=== PATIENT | male | born 1980 | race Caucasian/White ===

== ENCOUNTER 2016-05-26 20:46 | Emergency (ER) | payer OTHER ==
[~2016-05-26] VITALS: Ht 190.5 cm; Wt 102.1 kg
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
[2016-05-26] MEDS ORDERED: LACTATED RINGERS 1,000 ML IV ONE ×2 (20:57→22:09)
[2016-05-26 21:00] LABS: BASOPHILS % (AUTO) 1 % (0-10); EOSINOPHILS # (AUTO) 0.2 10^3/uL (0.0-0.3); EOSINOPHILS % (AUTO) 3 % (0-10); LYMPHOCYTES # (AUTO) 2.3 X 10^3 (1.0-4.0); LYMPHOCYTES % (AUTO) 30 % (12-44); MEAN CORPUSCULAR HEMOGLOBIN 32 PG (25-34); MEAN CORPUSCULAR HGB CONC 36 G/DL (32-36); MEAN CORPUSCULAR VOLUME 91 FL (80-99); MEAN PLATELET VOLUME 11.5 FL (7.4-10.4); MONOCYTES # (AUTO) 0.6 X 10^3 (0.0-1.0); MONOCYTES % (AUTO) 8 % (0-12); NEUTROPHILS # (AUTO) 4.5 X 10^3 (1.8-7.8); NEUTROPHILS % (AUTO) 59 % (42-75); PLATELET COUNT 247 10^3/uL (130-400); RED BLOOD COUNT 4.83 10^6/uL (4.35-5.85); RED CELL DISTRIBUTION WIDTH 12.4 % (10.0-14.5); WHITE BLOOD COUNT 7.6 10^3/uL (4.3-11.0)
[2016-05-26] MEDS ORDERED: TETANUS,DIPTH,PERTUSS P/F (BOOSTRIX) 0.5 ML VIAL IM ONE (21:00)
[2016-05-26] MEDS ORDERED: ONDANSETRON 4 MG/2 ML (SDV) Z0FRAN IVP ONE (21:00)
[2016-05-26 21:18] LABS: ALANINE AMINOTRANSFERASE 25 U/L (0-55); ALBUMIN 4.2 G/DL (3.2-4.5); ANION GAP 14 MMOL/L (5-14); ASPARTATE AMINO TRANSFERASE 21 U/L (5-34); BILIRUBIN,TOTAL 0.2 MG/DL (0.1-1.0); BLOOD UREA NITROGEN 13 MG/DL (7-18); BUN/CREATININE RATIO 13; CALCIUM 8.3 MG/DL (8.5-10.1); CARBON DIOXIDE 22 MMOL/L (21-32); CHLORIDE 101 MMOL/L (98-107); GFR ESTIMATED > 60; GLUCOSE 165 MG/DL (70-105); POTASSIUM 3.7 MMOL/L (3.6-5.0); SODIUM 137 MMOL/L (135-145); TOTAL PROTEIN 7.5 G/DL (6.4-8.2)
[2016-05-26 21:21] LABS: ALCOHOL 317 MG/DL (<10)
[2016-05-26 21:42] LABS: BILIRUBIN,URINE NEGATIVE (NEGATIVE); KETONES,URINE NEGATIVE (NEGATIVE); LEUKOCYTE ESTERASE ,URINE NEGATIVE (NEGATIVE); NITRITE,URINE NEGATIVE (NEGATIVE); PH,URINE 6.5 (5-9); PROTEIN,URINE NEGATIVE (NEGATIVE); UROBILINOGEN,URINE NORMAL (NORMAL)
--- NOTE | 2016-05-26 21:46 | Diagnostic Imaging Report ---
Indication: Fall, EtOH. Chest pain. Discussion: Single portable upright view of the chest was obtained, no comparison. The heart and lungs are normal. No osseous abnormality benefit. Impression: Negative portable chest. Dictated by: Dictated on workstation # [id number]
[2016-05-26 21:48] LABS: WBC,URINE RARE /HPF
[2016-05-26 21:49] LABS: SQUAMOUS EPITHELIAL CELL,UR RARE /HPF
--- NOTE | 2016-05-26 21:51 | Diagnostic Imaging Report ---
Indication: Fall with pelvic pain, EtOH. Discussion: Single AP view of the pelvis was obtained, no comparison. No acute fracture, dislocation, or other osseous abnormality identified. No significant degenerative disease. Alignment is anatomic. Soft tissues are unremarkable. Impression: Negative pelvis. Dictated by: Dictated on workstation # [id number]
--- NOTE | 2016-05-26 21:53 | Diagnostic Imaging Report ---
PROCEDURE: CT head, face, and cervical spine without contrast. TECHNIQUE: Multiple contiguous axial images were obtained through the head, neck, and facial bones without the use of intravenous contrast. Sagittal and coronal reformations through the cervical spine and facial bones were also performed. Indication: Fall with head and neck pain, EtOH. Comparison: None. Discussion: Head/face: No intracranial hemorrhage, mass, midline shift, or hydrocephalus. The ventricles and sulci are normal size and configuration for age. No acute facial fracture identified. Mild paranasal sinus mucosal thickening, likely chronic. The visualized orbits, mastoid air cells, and calvarium are unremarkable. Cervical spine: No acute fracture, subluxation, or other osseous abnormality identified. No significant degenerative disease. Alignment is anatomic. Soft tissues are unremarkable. Accessory ossicle noted posterior to the C7 spinous process, incidental. Impression: 1. Negative head CT. 2. Negative cervical spine CT. Dictated by: Dictated on workstation # [id number]
[2016-05-26 23:20] VITALS: BP 124/70
== END 2016-05-26 23:30 | disposition home or self-care (01) ==
LOC: EDUNIT# 20:46 → ER 20:47
DX: S00.81XA Abrasion of other part of head, initial encounter (principal); F10.129 Alcohol abuse with intoxication, unspecified; Z23 Encounter for immunization; F17.210 Nicotine dependence, cigarettes, uncomplicated; Y90.8 Blood alcohol level of 240 mg/100 ml or more; W01.0XXA Fall on same level from slipping, tripping and stumbling without subsequent striking against object, initial encounter; Y92.414 Local residential or business street as the place of occurrence of the external cause; Y99.8 Other external cause status
CPT/HCPCS: 36415; 70450; 70486; 71010; 72125; 72170; 80053; 80306; 80320; 81000; 85025; 90471; 90715; 96361; 96374

== ENCOUNTER 2016-07-21 23:03 | Emergency (ER) | payer OTHER ==
[~2016-07-21] VITALS: Ht 180.3 cm; Wt 95.3 kg
[2016-07-21 23:16] LABS: BASOPHILS % (AUTO) 0 % (0-10); EOSINOPHILS # (AUTO) 0.1 10^3/uL (0.0-0.3); EOSINOPHILS % (AUTO) 1 % (0-10); LYMPHOCYTES # (AUTO) 1.7 X 10^3 (1.0-4.0); LYMPHOCYTES % (AUTO) 20 % (12-44); MEAN CORPUSCULAR HEMOGLOBIN 31 PG (25-34); MEAN CORPUSCULAR HGB CONC 35 G/DL (32-36); MEAN CORPUSCULAR VOLUME 90 FL (80-99); MEAN PLATELET VOLUME 11.8 FL (7.4-10.4); MONOCYTES # (AUTO) 0.7 X 10^3 (0.0-1.0); MONOCYTES % (AUTO) 9 % (0-12); NEUTROPHILS # (AUTO) 5.8 X 10^3 (1.8-7.8); NEUTROPHILS % (AUTO) 70 % (42-75); PLATELET COUNT 266 10^3/uL (130-400); RED CELL DISTRIBUTION WIDTH 12.1 % (10.0-14.5); WHITE BLOOD COUNT 8.3 10^3/uL (4.3-11.0)
[2016-07-21 23:35] LABS: ALANINE AMINOTRANSFERASE 18 U/L (0-55); ALBUMIN 3.8 G/DL (3.2-4.5); ALCOHOL 289 MG/DL (<10); ANION GAP 14 MMOL/L (5-14); ASPARTATE AMINO TRANSFERASE 19 U/L (5-34); BILIRUBIN,TOTAL 0.3 MG/DL (0.1-1.0); BLOOD UREA NITROGEN 9 MG/DL (7-18); BUN/CREATININE RATIO 9; CALCIUM 8.2 MG/DL (8.5-10.1); CARBON DIOXIDE 18 MMOL/L (21-32); CHLORIDE 107 MMOL/L (98-107); CREATININE SERUM 1.02 MG/DL (0.60-1.30); GFR ESTIMATED > 60; GLUCOSE 159 MG/DL (70-105); POTASSIUM 3.5 MMOL/L (3.6-5.0); SALICYLATE < 5.0 MG/DL (5.0-20.0); SODIUM 139 MMOL/L (135-145); TOTAL PROTEIN 6.8 G/DL (6.4-8.2)
[2016-07-21 23:36] LABS: ACETAMINOPHEN < 10 UG/ML (10-30)
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
[2016-07-22 00:54] VITALS: BP 132/91
--- NOTE | 2016-07-22 06:20 | Diagnostic Imaging Report ---
PROCEDURE: CT head and CT cervical spine without contrast. TECHNIQUE: Multiple contiguous axial images were obtained through the brain and cervical spine without the use of intravenous contrast. Sagittal and coronal reformations through the cervical spine were then performed. INDICATION: Found unresponsive COMPARISON: May 26, 2016 FINDINGS: No intracranial hemorrhage. No intracranial mass, mass effect, midline shift, herniation, hydrocephalus, or extra-axial fluid collection. Cavum septum pellucidum is again incidentally noted. No definite CT evidence of an acute ischemic infarction. Significant soft tissue swelling is noted within the bilateral frontal and periorbital regions, left greater than right. The globes appear intact. The calvarium is intact. Minimal mucosal thickening within scattered ethmoidal air cells. Alignment of the cervical spine is well maintained. Alignment of the atlantooccipital joint is well maintained. Vertebral body heights are well-maintained. Minimal disc space height loss at C5/C6. No acute fracture or dislocation. No destructive osseous process. No apical pneumothorax. Mild scattered facet joint degenerative changes and uncovertebral joint hypertrophy. Nuchal ligament calcification. IMPRESSION: No acute intracranial abnormality. No acute osseous abnormality within the cervical spine. Significant bifrontal and periorbital soft tissue swelling, left greater than right. Agree with preliminary interpretation. Dictated by: Dictated on workstation # [id number]
== END 2016-07-22 00:55 | disposition home or self-care (01) ==
LOC: EDUNIT# 23:03 → ER 23:04
DX: S00.81XA Abrasion of other part of head, initial encounter (principal); S00.11XA Contusion of right eyelid and periocular area, initial encounter; S00.12XA Contusion of left eyelid and periocular area, initial encounter; F10.129 Alcohol abuse with intoxication, unspecified; F17.210 Nicotine dependence, cigarettes, uncomplicated; Y04.0XXA Assault by unarmed brawl or fight, initial encounter; Y92.414 Local residential or business street as the place of occurrence of the external cause; Y99.8 Other external cause status
CPT/HCPCS: 36415; 70450; 72125; 80053; 80320; 80329; 85025; 99283

== ENCOUNTER 2017-11-09 19:42 | Emergency (ER) | payer OTHER ==
[~2017-11-09] VITALS: Ht 188 cm; Wt 99.8 kg
[2017-11-09] MEDS ORDERED: NS IV 1000 ML 1,000 ML IV SCH (20:45)
--- NOTE | 2017-11-09 20:47 | ED General ---
General Chief Complaint: General Problems/Pain Stated Complaint: BLOOD CLOT;INFECTION;HIGH BS Source of Information: Patient Exam Limitations: No Limitations History of Present Illness Date Seen by Provider: Nov 09, 2017 Time Seen by Provider: 20:43 Initial Comments To ER with complaints of several issues. He noticed some left lower extremity swelling redness and pain yesterday. He has not seen a doctor in many years and believes himself to be otherwise healthy. He saw [facility] [place] today and had an ultrasound done of the left leg. This was positive for DVT. He then had outpatient labs drawn and was found to have a blood sugar of greater than 400. He is not known to be diabetic. He has no history of DVT. No recent travel or immobilization. No recent surgery. He is a nonsmoker. He states that his sister did have a DVT one time and was told that she had a hereditary clotting condition. He denies any shortness of breath or chest pain. Timing/Duration: 2-3 Days Severity: Moderate Associated Systoms: No Chest Pain, No Cough, No Diaphoresis, No Fever/Chills Allergies and Home Medications Allergies Coded Allergies: Penicillins (Verified Allergy, Unknown, 05/26/16) Home Medications Rivaroxaban 15 Mg Tablet, 15 MG PO BID Prescribed by: KEEGAN REARDON on 11/09/17 4840 Patient Home Medication List Home Medication List Reviewed: Yes Review of Systems Review of Systems Constitutional: see HPI; No chills; fever (100.7 at [facility] [place]) EENTM: see HPI Respiratory: see HPI, dyspnea on exertion Cardiovascular: see HPI; No chest pain, No edema, No Hx of Intervention, No palpitations Genitourinary: no symptoms reported Musculoskeletal: no symptoms reported Skin: see HPI Psychiatric/Neurological: No Symptoms Reported Hematologic/Lymphatic: No Symptoms Reported Immunological/Allergic: no symptoms reported Past Njosfpu-Hpfzse-Ucaszd Hx Patient Social History Alcohol Beverage of Choice: Beer Type Used: Cigarettes 2nd Hand Smoke Exposure: Yes Recent Hopitalizations: No Immunizations Up To Date Tetanus Booster (TDap): Less than 5yrs Seasonal Allergies Seasonal Allergies: No Past Medical History Surgeries: No (UNKNOWN) Respiratory: No (UNKNOWN) Cardiac: No (UNKNOWN) Neurological: No (UNKNOWN) Reproductive Disorders: No (UNKNOWN) Genitourinary: No Gastrointestinal: No (UNKNOWN) Musculoskeletal: No (UNKNOWN) Endocrine: No (UNKNOWN) HEENT: No Cancer: No (UNKNOWN) Psychosocial: No (UNKNOWN) Integumentary: No (UNKNOWN) Blood Disorders: No (UNKNOWN) Family Medical History No Pertinent Family Hx Physical Exam Vital Signs Capillary Refill : Height, Weight, BMI Height: 5'11.00" Weight: 210lbs. oz. 95.189009ll; BMI Method:Estimated General Appearance: No Apparent Distress, WD/WN, Other (very pleasant gentleman ) Eyes: Bilateral Eye Normal Inspection, Bilateral Eye PERRL, Bilateral Eye EOMI HEENT: PERRL/EOMI, TMs Normal Neck: Full Range of Motion, Normal Inspection Respiratory: Lungs Clear, Normal Breath Sounds, No Accessory Muscle Use, No Respiratory Distress Cardiovascular: Regular Rate, Rhythm, Normal Peripheral Pulses; No Systolic Murmur Gastrointestinal: Normal Bowel Sounds, Non Tender, Soft Extremity: Normal Capillary Refill, Inflammation, Other (left lower extremity is with 2+ pitting edema and erythema up to the proximal calf.) Neurologic/Psychiatric: Alert, Oriented x3, No Motor/Sensory Deficits Skin: Normal Color, Warm/Dry Focused Exam Lactate Level 11/09/17 20:51: Lactic Acid Level 1.86 Lactic Acid Level Laboratory Tests Test 11/09/17 20:51 Lactic Acid Level 1.86 MMOL/L (0.50-2.00) Progress/Results/Core Measures Suspected Sepsis SIRS Temperature: Pulse: Respiratory Rate: Laboratory Tests 11/09/17 20:51: White Blood Count 7.2 Blood Pressure / Mean: 11/09/17 20:51: Lactic Acid Level 1.86 Laboratory Tests 11/09/17 20:51: Creatinine 1.28, Platelet Count 201, Total Bilirubin 0.4 Results/Orders Lab Results Laboratory Tests Test 11/09/17 20:51 Range/Units White Blood Count 7.2 4.3-11.0 10^3/uL Red Blood Count 4.70 4.35-5.85 10^6/uL Hemoglobin 14.5 13.3-17.7 G/DL Hematocrit 42 40-54 % Mean Corpuscular Volume 89 80-99 FL Mean Corpuscular Hemoglobin 31 25-34 PG Mean Corpuscular Hemoglobin Concent 35 32-36 G/DL Red Cell Distribution Width 12.5 10.0-14.5 % Platelet Count 201 130-400 10^3/uL Mean Platelet Volume 12.0 H 7.4-10.4 FL Neutrophils (%) (Auto) 61 42-75 % Lymphocytes (%) (Auto) 23 12-44 % Monocytes (%) (Auto) 10 0-12 % Eosinophils (%) (Auto) 5 0-10 % Basophils (%) (Auto) 1 0-10 % Neutrophils # (Auto) 4.4 1.8-7.8 X 10^3 Lymphocytes # (Auto) 1.6 1.0-4.0 X 10^3 Monocytes # (Auto) 0.7 0.0-1.0 X 10^3 Eosinophils # (Auto) 0.4 H 0.0-0.3 10^3/uL Basophils # (Auto) 0.1 0.0-0.1 10^3/uL Sodium Level 135 135-145 MMOL/L Potassium Level 4.5 3.6-5.0 MMOL/L Chloride Level 100 98-107 MMOL/L Carbon Dioxide Level 19 L 21-32 MMOL/L Anion Gap 16 H 5-14 MMOL/L Blood Urea Nitrogen 12 7-18 MG/DL Creatinine 1.28 0.60-1.30 MG/DL Estimat Glomerular Filtration Rate > 60 BUN/Creatinine Ratio 9 Glucose Level 332 H 70-105 MG/DL Lactic Acid Level 1.86 0.50-2.00 MMOL/L Calcium Level 9.6 8.5-10.1 MG/DL Corrected Calcium 9.4 8.5-10.1 MG/DL Total Bilirubin 0.4 0.1-1.0 MG/DL Aspartate Amino Transf (AST/SGOT) 15 5-34 U/L Alanine Aminotransferase (ALT/SGPT) 17 0-55 U/L Alkaline Phosphatase 68 40-136 U/L Total Protein 8.1 6.4-8.2 GM/DL Albumin 4.2 3.2-4.5 GM/DL My Orders Orders - KEEGAN REARDON ACCESS CONTROL SPECIALIST Cbc With Automated Diff (11/09/17 20:32) Comprehensive Metabolic Panel (11/09/17 20:32) Ua Culture If Indicated (11/09/17 20:32) Iv Heplock-Insert (Order) (11/09/17 20:32) Ns Iv 1000 Ml (Sodium Chloride 0.9%) (11/09/17 20:45) Blood Culture (11/09/17 20:49) Lactic Acid Analyzer (11/09/17 20:49) Rivaroxaban Tablet (Xarelto Tablet) (11/09/17 22:15) Vital Signs/I&O Capillary Refill : Departure Communication (Admissions) 7107- spoke Dr. Chun. This is a one-time elevation of blood sugar, he can follow-up in the outpatient setting for recheck and to start on insulin. No evidence that he is in DKA. He is not tachypneic. No shortness of breath or chest pain. Labs are otherwise unremarkable. Impression Primary Impression: Diabetes Additional Impression: Left leg DVT Disposition: HOME, SELF-CARE Condition: Stable Departure-Patient Inst. Decision time for Depature: 21:51 Referrals: DEMI SPRAGUE,LOCAL PHYSICIAN (PCP) Primary Care Physician Patient Instructions: DIABETES, Deep Vein Thrombosis (Blood Clots in the Legs) Add. Discharge Instructions: 1. Call one of the physicians listed at [facility] on Sunday. Start the blood thinners tomorrow. Return to ER for any shortness of breath, chest pain, vomiting or other concerns. Drink plenty of fluids. All discharge instructions reviewed with patient and/or family. Voiced understanding. If you are unable to afford the blood thinner medication, return to ER tomorrow as it is very important that you take this medication. You will need 15mg twice a day for 21 days. Then, 10mg daily thereafter for 3-6 months. So, youll need to see someone to get prescribed the 10mg daily tablets. Scripts Rivaroxaban (Xarelto) 15 Mg Tablet 15 MG PO BID, #42 TAB Prov: KEEGAN REARDON APRN 11/09/17 KEEGAN REARDON APRN Nov 09, 2017 20:47
[2017-11-09 21:08] LABS: BASOPHILS # (AUTO) 0.1 10^3/uL (0.0-0.1); BASOPHILS % (AUTO) 1 % (0-10); EOSINOPHILS # (AUTO) 0.4 10^3/uL (0.0-0.3); EOSINOPHILS % (AUTO) 5 % (0-10); HEMATOCRIT 42 % (40-54); HEMOGLOBIN 14.5 G/DL (13.3-17.7); LYMPHOCYTES # (AUTO) 1.6 X 10^3 (1.0-4.0); LYMPHOCYTES % (AUTO) 23 % (12-44); MEAN CORPUSCULAR HEMOGLOBIN 31 PG (25-34); MEAN CORPUSCULAR HGB CONC 35 G/DL (32-36); MEAN CORPUSCULAR VOLUME 89 FL (80-99); MONOCYTES # (AUTO) 0.7 X 10^3 (0.0-1.0); MONOCYTES % (AUTO) 10 % (0-12); NEUTROPHILS # (AUTO) 4.4 X 10^3 (1.8-7.8); NEUTROPHILS % (AUTO) 61 % (42-75); PLATELET COUNT 201 10^3/uL (130-400); RED CELL DISTRIBUTION WIDTH 12.5 % (10.0-14.5); WHITE BLOOD COUNT 7.2 10^3/uL (4.3-11.0)
[2017-11-09 21:25] LABS: ALANINE AMINOTRANSFERASE 17 U/L (0-55); ALBUMIN 4.2 GM/DL (3.2-4.5); ALKALINE PHOSPHATASE 68 U/L (40-136); BILIRUBIN,TOTAL 0.4 MG/DL (0.1-1.0); BUN/CREATININE RATIO 9; CALCIUM 9.6 MG/DL (8.5-10.1); CARBON DIOXIDE 19 MMOL/L (21-32); CHLORIDE 100 MMOL/L (98-107); CREATININE SERUM 1.28 MG/DL (0.60-1.30); GFR ESTIMATED > 60; GLUCOSE 332 MG/DL (70-105); POTASSIUM 4.5 MMOL/L (3.6-5.0); SODIUM 135 MMOL/L (135-145); TOTAL PROTEIN 8.1 GM/DL (6.4-8.2)
[2017-11-09] MEDS ORDERED: RIVA15TA PO (21:55)
[2017-11-09] MEDS ORDERED: RIVAROXABAN 15 MG TABLET (XARELTO) PO ONE (22:15)
[2017-11-10 20:32] VITALS: BP 149/100
== END 2017-11-09 23:04 | disposition home or self-care (01) ==
LOC: EDUNIT# 19:42 → ER 19:43
DX: E11.9 Type 2 diabetes mellitus without complications (principal); I82.402 Acute embolism and thrombosis of unspecified deep veins of left lower extremity; Z88.0 Allergy status to penicillin; Z77.22 Contact with and (suspected) exposure to environmental tobacco smoke (acute) (chronic)
CPT/HCPCS: 36415; 80053; 83605; 85025; 87040; 96360; 96361; 99283; 99284

== ENCOUNTER → 2017-11-09 | Outpatient (CLI) | payer OTHER ==
[~2017-11-09] MED LIST: RIVA15TA PO
[2017-11-09 18:34] LABS: BASOPHILS % (AUTO) 1 % (0-10); EOSINOPHILS # (AUTO) 0.4 10^3/uL (0.0-0.3); EOSINOPHILS % (AUTO) 6 % (0-10); HEMATOCRIT 46 % (40-54); HEMOGLOBIN 16.2 G/DL (13.3-17.7); LYMPHOCYTES # (AUTO) 1.2 X 10^3 (1.0-4.0); LYMPHOCYTES % (AUTO) 17 % (12-44); MEAN CORPUSCULAR HEMOGLOBIN 31 PG (25-34); MEAN CORPUSCULAR HGB CONC 35 G/DL (32-36); MEAN CORPUSCULAR VOLUME 88 FL (80-99); MEAN PLATELET VOLUME 12.1 FL (7.4-10.4); MONOCYTES # (AUTO) 0.5 X 10^3 (0.0-1.0); MONOCYTES % (AUTO) 7 % (0-12); NEUTROPHILS % (AUTO) 70 % (42-75); PLATELET COUNT 211 10^3/uL (130-400); RED BLOOD COUNT 5.22 10^6/uL (4.35-5.85); RED CELL DISTRIBUTION WIDTH 12.5 % (10.0-14.5); WHITE BLOOD COUNT 7.2 10^3/uL (4.3-11.0)
[2017-11-09 18:47] LABS: INR 0.9 (0.8-1.4); PROTHROMBIN TIME PATIENT 12.5 SEC (12.2-14.7)
[2017-11-09 18:53] LABS: ALANINE AMINOTRANSFERASE 18 U/L (0-55); ALBUMIN 4.6 GM/DL (3.2-4.5); ALKALINE PHOSPHATASE 79 U/L (40-136); BILIRUBIN,TOTAL 0.5 MG/DL (0.1-1.0); BUN/CREATININE RATIO 10; CARBON DIOXIDE 21 MMOL/L (21-32); CHLORIDE 99 MMOL/L (98-107); CREATININE SERUM 1.26 MG/DL (0.60-1.30); GFR ESTIMATED > 60; POTASSIUM 4.7 MMOL/L (3.6-5.0); SODIUM 132 MMOL/L (135-145); TOTAL PROTEIN 8.9 GM/DL (6.4-8.2)
[2017-11-09 18:56] LABS: GLUCOSE 444 MG/DL (70-105)
== END ==
LOC: LAB 18:15
PROVIDERS: ATTEND Nurse Practitioner Family
DX: I82.412 Acute embolism and thrombosis of left femoral vein (principal)
CPT/HCPCS: 36415; 80053; 85025; 85610; 85730

== ENCOUNTER → 2017-11-09 | Outpatient (CLI) | payer OTHER ==
--- NOTE | 2017-11-09 17:19 | Diagnostic Imaging Report ---
INDICATION: Left leg redness and swelling. TECHNIQUE: Grayscale with color-flow and Doppler waveform evaluation of the left lower extremity deep venous system. CORRELATION STUDY: None. FINDINGS: There is presence of a thrombus originating within the mid aspect of the femoral vein of the thigh extending more centrally through the proximal femoral vein, common femoral vein, as well as portions of the profunda femoral vein. Soft tissue edema is present. IMPRESSION: 1. Findings positive for deep venous thrombosis of the left lower extremity. Clot predominantly involving the proximal and mid aspect of the thigh. Findings were relayed by the heel burnisher at time of imaging. Dictated by: Dictated on workstation # [id number]
== END ==
LOC: RAD 16:31
PROVIDERS: ATTEND Nurse Practitioner Family
DX: I82.4Y2 Acute embolism and thrombosis of unspecified deep veins of left proximal lower extremity (principal); L03.116 Cellulitis of left lower limb; H66.91 Otitis media, unspecified, right ear; R03.0 Elevated blood-pressure reading, without diagnosis of hypertension

== ENCOUNTER → 2017-11-10 | Outpatient (CLI) | payer OTHER ==
[2017-11-10 13:40] LABS: BASOPHILS # (AUTO) 0.1 10^3/uL (0.0-0.1); BASOPHILS % (AUTO) 1 % (0-10); EOSINOPHILS # (AUTO) 0.4 10^3/uL (0.0-0.3); EOSINOPHILS % (AUTO) 6 % (0-10); HEMATOCRIT 44 % (40-54); HEMOGLOBIN 15.6 G/DL (13.3-17.7); LYMPHOCYTES # (AUTO) 1.6 X 10^3 (1.0-4.0); LYMPHOCYTES % (AUTO) 22 % (12-44); MEAN CORPUSCULAR HEMOGLOBIN 31 PG (25-34); MEAN CORPUSCULAR HGB CONC 36 G/DL (32-36); MEAN CORPUSCULAR VOLUME 87 FL (80-99); MEAN PLATELET VOLUME 12.1 FL (7.4-10.4); MONOCYTES # (AUTO) 0.7 X 10^3 (0.0-1.0); MONOCYTES % (AUTO) 9 % (0-12); NEUTROPHILS # (AUTO) 4.7 X 10^3 (1.8-7.8); NEUTROPHILS % (AUTO) 63 % (42-75); PLATELET COUNT 225 10^3/uL (130-400); RED CELL DISTRIBUTION WIDTH 12.3 % (10.0-14.5); WHITE BLOOD COUNT 7.5 10^3/uL (4.3-11.0)
[2017-11-10 13:55] LABS: ALANINE AMINOTRANSFERASE 19 U/L (0-55); ALBUMIN 4.3 GM/DL (3.2-4.5); ALKALINE PHOSPHATASE 69 U/L (40-136); BILIRUBIN,TOTAL 0.6 MG/DL (0.1-1.0); BUN/CREATININE RATIO 9; CALCIUM 9.8 MG/DL (8.5-10.1); CARBON DIOXIDE 18 MMOL/L (21-32); CHLORIDE 101 MMOL/L (98-107); CREATININE SERUM 1.19 MG/DL (0.60-1.30); GFR ESTIMATED > 60; GLUCOSE 307 MG/DL (70-105); POTASSIUM 4.4 MMOL/L (3.6-5.0); SODIUM 134 MMOL/L (135-145); TOTAL PROTEIN 8.4 GM/DL (6.4-8.2)
== END ==
LOC: LAB 13:12
PROVIDERS: ATTEND Family Medicine
DX: I82.4Y1 Acute embolism and thrombosis of unspecified deep veins of right proximal lower extremity (principal); E11.9 Type 2 diabetes mellitus without complications; Z79.01 Long term (current) use of anticoagulants
CPT/HCPCS: 36415; 80053; 83036; 85025

== ENCOUNTER → 2018-12-30 | Outpatient (CLI) | payer OTHER ==
[~2018-12-30] MED LIST changes: -RIVA15TA PO; +RIVA15TA2 PO
--- NOTE | 2018-12-30 12:19 | Diagnostic Imaging Report ---
PROCEDURE: US left lower extremity venous. TECHNIQUE: Multiple real-time grayscale images were obtained over the left lower extremity in various projections. Additional duplex Doppler and color Doppler images were also obtained. INDICATION: Prior history of DVT. COMPARISON: Correlation is made with prior study from 11/09/2017. FINDINGS: There appears to be partial occlusive DVT in the left common femoral vein. Clot does appear to be somewhat echogenic and likely chronic. The superficial femoral vein is duplicated. One of the femoral veins does appear to show normal compression. The second vein does show some internal echogenic thrombus, likely chronic DVT. The popliteal vein is widely patent. Peroneal veins were not well visualized. The iliac veins were not well visualized. No fluid collections are seen. 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 No definite acute DVT is seen. Dictated by: Dictated on workstation # [id number]
== END ==
LOC: RAD 11:17
PROVIDERS: ATTEND Nurse Practitioner Family
DX: I82.412 Acute embolism and thrombosis of left femoral vein (principal); M15.8 Other polyosteoarthritis; E13.69 Other specified diabetes mellitus with other specified complication

== ENCOUNTER → 2019-01-03 | Outpatient (CLI) | payer BC, OTHER ==
--- NOTE | 2019-01-03 16:28 | Diagnostic Imaging Report ---
EXAMINATION: Left lower extremity arterial Doppler. INDICATION: Decreased pedal pulses. FINDINGS: Spectral and color-flow imaging of the arterial system of the left lower extremity was performed. There are no prior studies available for comparison. There is generally good arterial blood flow to the left lower extremity. Triphasic waveforms are seen at all levels and there is no abrupt alteration of the velocities to suggest a hemodynamically significant stenosis. IMPRESSION: There is good arterial blood flow to the left lower extremity. There is no evidence for a hemodynamically significant stenosis. Dictated by: Dictated on workstation # [id number]
== END ==
LOC: RAD 15:17
PROVIDERS: ATTEND Nurse Practitioner Family
DX: I82.402 Acute embolism and thrombosis of unspecified deep veins of left lower extremity (principal); I82.522 Chronic embolism and thrombosis of left iliac vein; H92.03 Otalgia, bilateral; M15.8 Other polyosteoarthritis; E11.69 Type 2 diabetes mellitus with other specified complication; M25.572 Pain in left ankle and joints of left foot; M25.571 Pain in right ankle and joints of right foot
CPT/HCPCS: 93926

== ENCOUNTER → 2019-01-16 | Outpatient (CLI) | payer BC, OTHER | LOC: CARD 11:41 | PROVIDERS: ATTEND Internal Medicine Cardiovascular Disease | DX: I34.0 Nonrheumatic mitral (valve) insufficiency (principal); E11.9 Type 2 diabetes mellitus without complications; I82.409 Acute embolism and thrombosis of unspecified deep veins of unspecified lower extremity | CPT/HCPCS: 93306 ==

== ENCOUNTER 2019-01-21 16:44 | Observation (INO) | payer OTHER ==
[~2019-01-21] VITALS: Ht 185.5 cm; Wt 106.8 kg
[2019-01-21] MEDS ORDERED: NS IV 1000 ML 1,000 ML IV ONE (17:32)
[2019-01-21 17:38] LABS: BASOPHILS % (AUTO) 0 % (0-10); EOSINOPHILS # (AUTO) 0.2 10^3/uL (0.0-0.3); EOSINOPHILS % (AUTO) 2 % (0-10); HEMATOCRIT 38 % (40-54); HEMOGLOBIN 12.6 G/DL (13.3-17.7); LYMPHOCYTES # (AUTO) 1.2 X 10^3 (1.0-4.0); LYMPHOCYTES % (AUTO) 10 % (12-44); MEAN CORPUSCULAR HEMOGLOBIN 29 PG (25-34); MEAN CORPUSCULAR HGB CONC 33 G/DL (32-36); MEAN CORPUSCULAR VOLUME 88 FL (80-99); MEAN PLATELET VOLUME 10.8 FL (7.4-10.4); MONOCYTES # (AUTO) 1.2 X 10^3 (0.0-1.0); MONOCYTES % (AUTO) 10 % (0-12); NEUTROPHILS # (AUTO) 9.4 X 10^3 (1.8-7.8); NEUTROPHILS % (AUTO) 78 % (42-75); PLATELET COUNT 451 10^3/uL (130-400); RED CELL DISTRIBUTION WIDTH 12.9 % (10.0-14.5); WHITE BLOOD COUNT 12.1 10^3/uL (4.3-11.0)
--- NOTE | 2019-01-21 17:44 | ED General ---
General Chief Complaint: Dizziness/Syncope Stated Complaint: DIZZINESS/JOINT PAIN Nursing Triage Note: out of the shower and got dizzy "almost passed out" Nursing Sepsis Screen: No Definite Risk Source of Information: Patient Exam Limitations: No Limitations (MARILEE CELESTE MD) History of Present Illness Date Seen by Provider: Jan 21, 2019 Time Seen by Provider: 17:21 Initial Comments Here with report of weakness and felt like he was given a pass out. Overall just had increasing muscle aches and weakness over the last several days. Does have history of blood clots in the left leg and currently is on Xarelto. He is previously on the 20 mg daily dosing but was recently increased to the 15 mg twice a day three-week pack due to concerns of blood clots. He is diabetic. Denies nausea, vomiting or diarrhea. Timing/Duration: 1 Week, Getting Worse Severity: Moderate Modifying Factors: worse with Movement; improves with Rest Associated Systoms: No Chest Pain, No Cough, No Fever/Chills, No Nausea/Vomiting; Shortness of Air, Weakness (MARILEE CELESTE MD) Allergies and Home Medications Allergies Coded Allergies: Penicillins (Verified Allergy, Unknown, 05/26/16) Home Medications Rivaroxaban 15 Mg Tablet, 15 MG PO BID Prescribed by: KEEGAN REARDON on 11/09/17 0659 Patient Home Medication List Home Medication List Reviewed: Yes (MARILEE CELESTE MD) Review of Systems Review of Systems Constitutional: see HPI; No chills, No fever EENTM: no symptoms reported Respiratory: No cough; dyspnea on exertion, short of breath; No wheezing Cardiovascular: No palpitations, No syncope Gastrointestinal: no symptoms reported Genitourinary: no symptoms reported Musculoskeletal: joint pain, muscle pain Skin: change in color; No lesions Psychiatric/Neurological: Denies Headache, Denies Numbness, Denies Paresthesia; Weakness Hematologic/Lymphatic: Blood Clots Immunological/Allergic: no symptoms reported (MARILEE CELESTE MD) All Other Systems Reviewed Negative Unless Noted: Yes (MARILEE CELESTE MD) Past Iokodat-Rjnyag-Huvtxj Hx Past Med/Social Hx: Reviewed Nursing Past Med/Soc Hx (MARILEE CELESTE MD) Patient Social History Alcohol Use: Occasionally Uses Alcohol Beverage of Choice: Beer Recreational Drug Use: No Smoking Status: Former Smoker Type Used: Cigarettes 2nd Hand Smoke Exposure: Yes Recent Foreign Travel: No Contact w/Someone Who Travel: No Recent Infectious Disease Expo: No Recent Hopitalizations: No (MARILEE CELESTE MD) Immunizations Up To Date Tetanus Booster (TDap): Less than 5yrs (MARILEE CELESTE MD) Seasonal Allergies Seasonal Allergies: No (MARILEE CELESTE MD) Past Medical History Surgeries: Yes (hand surgery) Tonsillectomy Respiratory: No Cardiac: Yes High Cholesterol, Hypertension Neurological: Yes Neuropathy Reproductive Disorders: No (UNKNOWN) Genitourinary: No Gastrointestinal: No Musculoskeletal: Yes Endocrine: Yes Diabetes, Non-Insulin dep HEENT: No Cancer: No Psychosocial: No Integumentary: Yes (skin grafting to the hand) Blood Disorders: No (UNKNOWN) (MARILEE CELESTE MD) Family Medical History Reviewed and Corrections made (MARILEE CELESTE MD) No Pertinent Family Hx (MARILEE CELESTE MD) Physical Exam Vital Signs Vital Signs - First Documented 01/21/19 16:51 Temp 36.4 Pulse 113 Resp 18 B/P (MAP) 133/113 (120) Pulse Ox 96 (KEEGAN REARDON APRN) Vital Signs Capillary Refill : Less Than 3 Seconds (MARILEE CELESTE MD) Height, Weight, BMI Height: 5'11.00" Weight: 210lbs. oz. 95.134156fu; 31.00 BMI Method:Estimated General Appearance: No Apparent Distress, WD/WN HEENT: PERRL/EOMI, Other (mucous membranes dry) Neck: Non Tender, Supple Respiratory: Lungs Clear, Normal Breath Sounds Cardiovascular: No Murmur, Tachycardia Gastrointestinal: Non Tender, Soft Back: Normal Inspection, No CVA Tenderness, No Vertebral Tenderness Extremity: Pedal Edema, Swelling (left greater than right) Neurologic/Psychiatric: Alert, Oriented x3 Skin: Warm/Dry, Ecchymosis (left lower anterior leg) (MARILEE CELESTE MD) Progress/Results/Core Measures Suspected Sepsis Recent Fever Within 48 Hours: No Infection Criteria Present: None New/Unexplained Altered Menta: No Sepsis Screen: No Definite Risk SIRS Temperature: Pulse: 113 Respiratory Rate: 18 Laboratory Tests 01/21/19 17:11: White Blood Count 12.1H Blood Pressure 133 /113 Mean: 120 Laboratory Tests 01/21/19 17:11: Platelet Count 451H (MARILEE CELESTE MD) Results/Orders Lab Results Laboratory Tests Test 01/21/19 17:11 01/21/19 18:00 Range/Units White Blood Count 12.1 H 4.3-11.0 10^3/uL Red Blood Count 4.29 L 4.35-5.85 10^6/uL Hemoglobin 12.6 L 13.3-17.7 G/DL Hematocrit 38 L 40-54 % Mean Corpuscular Volume 88 80-99 FL Mean Corpuscular Hemoglobin 29 25-34 PG Mean Corpuscular Hemoglobin Concent 33 32-36 G/DL Red Cell Distribution Width 12.9 10.0-14.5 % Platelet Count 451 H 130-400 10^3/uL Mean Platelet Volume 10.8 H 7.4-10.4 FL Neutrophils (%) (Auto) 78 H 42-75 % Lymphocytes (%) (Auto) 10 L 12-44 % Monocytes (%) (Auto) 10 0-12 % Eosinophils (%) (Auto) 2 0-10 % Basophils (%) (Auto) 0 0-10 % Neutrophils # (Auto) 9.4 H 1.8-7.8 X 10^3 Lymphocytes # (Auto) 1.2 1.0-4.0 X 10^3 Monocytes # (Auto) 1.2 H 0.0-1.0 X 10^3 Eosinophils # (Auto) 0.2 0.0-0.3 10^3/uL Basophils # (Auto) 0.0 0.0-0.1 10^3/uL Sodium Level 132 L 135-145 MMOL/L Potassium Level 4.5 3.6-5.0 MMOL/L Chloride Level 95 L 98-107 MMOL/L Carbon Dioxide Level 25 21-32 MMOL/L Anion Gap 12 5-14 MMOL/L Blood Urea Nitrogen 23 H 7-18 MG/DL Creatinine 1.61 H 0.60-1.30 MG/DL Estimat Glomerular Filtration Rate 49 BUN/Creatinine Ratio 14 Glucose Level 156 H 70-105 MG/DL Calcium Level 10.5 H 8.5-10.1 MG/DL Corrected Calcium 10.3 H 8.5-10.1 MG/DL Total Bilirubin 0.4 0.1-1.0 MG/DL Aspartate Amino Transf (AST/SGOT) 20 5-34 U/L Alanine Aminotransferase (ALT/SGPT) 20 0-55 U/L Alkaline Phosphatase 62 40-136 U/L C-Reactive Protein High Sensitivity 10.82 H 0.00-0.50 MG/DL Total Protein 8.5 H 6.4-8.2 GM/DL Albumin 4.2 3.2-4.5 GM/DL Urine Color DARK YELLOW Urine Clarity SL CLOUDY Urine pH 5.5 5-9 Urine Specific [place] >=1.030 1.016-1.022 Urine Protein 2+ H NEGATIVE Urine Glucose (UA) NEGATIVE NEGATIVE Urine Ketones 1+ H NEGATIVE Urine Nitrite NEGATIVE NEGATIVE Urine Bilirubin 1+ H NEGATIVE Urine Urobilinogen 0.2 < = 1.0 MG/DL Urine Leukocyte Esterase NEGATIVE NEGATIVE Urine RBC (Auto) NEGATIVE NEGATIVE Urine RBC NONE /HPF Urine WBC 0-2 /HPF Urine Squamous Epithelial Cells RARE /HPF Urine Crystals NONE /LPF Urine Amorphous Sediment MOD ISRRAEL URATES H /LPF Urine Bacteria TRACE /HPF Urine Casts PRESENT /LPF Urine Hyaline Casts >50 H /LPF Urine Granular Casts RARE /LPF Urine Mucus NEGATIVE /LPF Urine Culture Indicated NO (KEEGAN REARDON APRN) My Orders Orders - KEEGAN REARDON APRN Ct Angio Chest W (01/21/19 17:55) Iohexol Injection (Omnipaque 350 Mg/Ml 1 (01/21/19 18:00) Received Contrast (Hold Metformin- Contr (01/21/19 18:00) Ns (Ivpb) (Sodium Chloride 0.9% Ivpb Bag (01/21/19 18:00) Ns Iv 1000 Ml (Sodium Chloride 0.9%) (01/21/19 19:00) Ceftriaxone For Iv Use (Rocephin For I (01/21/19 19:00) (KEEGAN REARDON APRN) Medications Given in ED Current Medications Medications Dose Ordered Sig/Sandra Route Start Time Stop Time Status Last Admin Dose Admin Ceftriaxone Sodium 2000 mg/ Sterile Water 20 ml @ 240 mls/hr ONCE ONCE IV 01/21/19 19:00 01/21/19 19:04 DC 01/21/19 19:00 240 MLS/HR Iohexol 100 ml ONCE ONCE IV 01/21/19 18:00 01/21/19 18:39 DC 01/21/19 18:31 83 ML Sodium Chloride 100 ml ONCE ONCE IV 01/21/19 18:00 01/21/19 18:39 DC 01/21/19 18:31 100 ML Sodium Chloride 1,000 ml @ 0 mls/hr Q0M ONCE IV 01/21/19 17:32 01/21/19 17:33 DC 01/21/19 17:52 0 MLS/HR (KEEGAN REARDON APRN) Vital Signs/I&O 01/21/19 16:51 Temp 36.4 Pulse 113 Resp 18 B/P (MAP) 133/113 (120) Pulse Ox 96 (KEEGAN REARDON APRN) Vital Signs/I&O Capillary Refill : Less Than 3 Seconds (MARILEE CELESTE MD) Blood Pressure Mean: 120 POS Progress Note : Progress Note Seen and evaluated. IV, labs, UA, chest x-ray and normal saline [address] angiogram pending laboratory studies. EKG ordered. (MARILEE CELESTE MD) Diagnostic Imaging Diagonstic Imaging: CT Comments NAME: SYLVESTER BILL [facility] REC#: [id number] PT STATUS: REG ER : 1980 PHYSICIAN: KEEGAN REARDON APRN ADMIT DATE: 01/21/19/ER Signed POSDate of Exam:01/21/19 CT ANGIO CHEST W PROCEDURE: CT angiography of the chest with contrast. TECHNIQUE: Multiple contiguous axial images were obtained through the chest after uneventful bolus administration of intravenous contrast. 3D reconstructed CTA MIP acquisitions were also performed. Auto Exposure Controls were utilized during the CT exam to meet ALARA standards for radiation dose reduction. INDICATION: Dizziness and shortness of air as well as lower extremity swelling. Chest x-ray also demonstrates some hilar fullness. No prior CT studies are available for comparison. Pulmonary arterial opacification is suboptimal, limiting evaluation for pulmonary emboli. No definite filling defects are seen within central or lobar branches. There is bulky mediastinal and hilar lymphadenopathy, likely accounting for hilar fullness on recent chest x-ray. Confluent of the right paratracheal nodes measure 2.9 x 2.0 cm. There are enlarged AP window nodes. Significant subcarinal fullness is seen. There is also bilateral hilar lymphadenopathy. Left hilar lymph node measures 2.8 x 2.2 cm. No pericardial or pleural fluid is identified. Parenchymal evaluation does show an area of consolidation in the right upper lobe measuring 2.3 cm, likely pneumonia. There is also some patchy infiltrate in the right upper lobe more inferiorly at the level of the right hilum. Left lung appears to be clear. Upper abdomen is unremarkable. IMPRESSION: 1. Suboptimal evaluation for pulmonary embolism. No central pulmonary emboli are detected. 2. Bulky mediastinal and hilar lymphadenopathy. Lymphomatous process cannot be excluded. Granulomatous process such as sarcoid cannot be entirely excluded. 3. Right upper lobe pulmonary infiltrate suggestive of pneumonia. Dictated by: Dictated on workstation # [id number] Dict: 01/21/191831 Trans: 01/21/191840 [facility] [id number] Interpreted by: AMANDEEP SALGUERO MD Electronically signed by: AMANDEEP SALGUERO MD 01/21/191840 (KEEGAN REARDON APRN) Departure Communication (Admissions) Time/Spoke to Admitting Phy: 19:31 1930-I've taken over care from Dr. CELESTE, CT angios chest has been done, no evidence for a lower pulmonary embolism. He does have a right upper lobe pneumonia with acute kidney injury. We'll admit him after speaking with Dr. Strong, IV antibiotics being Rocephin and Zithromax for community-acquired pneumonia, recheck labs in the morning. Observation status. (KEEGAN REARDON APRN) Impression Primary Impression: Pneumonia Qualified Codes: J18.1 - Lobar pneumonia, unspecified organism Disposition: 01 HOME, SELF-CARE Condition: Stable Admissions Decision to Admit Reason: Admit from ER (General) Decision to Admit/Date: Jan 21, 2019 Time/Decision to Admit Time: 19:31 (KEEGAN REARDON APRN) Departure-Patient Inst. Decision time for Depature: 18:52 (KEEGAN REARDON APRN) Referrals: NO,LOCAL PHYSICIAN (PCP/Family) Primary Care Physician Patient Instructions: Pneumonia in Adults Add. Discharge Instructions: 1. Return to ER for any concerns 2. Follow-up with your doctor next week 3. All discharge instructions reviewed with patient and/or family. Voiced understanding. MARILEE CELESTE MD Jan 21, 2019 17:44 KEEGAN ALEXIS APRN Jan 21, 2019 18:49 POS
--- NOTE | 2019-01-21 17:46 | Diagnostic Imaging Report ---
INDICATION: Dizziness. TIME OF EXAM: 5:41 PM COMPARISON: Correlation is made with prior chest from 05/26/2016. FINDINGS: The heart size is normal. There is some fullness in the narayan, particularly on the left. No effusion or pneumothorax is seen. The pulmonary vascularity is unremarkable. IMPRESSION: Hilar fullness, particularly on the left. Adenopathy cannot be excluded. CT chest would be useful for further evaluation. Dictated by: Dictated on workstation # [id number]
[2019-01-21 17:49] LABS: ALBUMIN 4.2 GM/DL (3.2-4.5); BILIRUBIN,TOTAL 0.4 MG/DL (0.1-1.0); CALCIUM 10.5 MG/DL (8.5-10.1); CREATININE SERUM 1.61 MG/DL (0.60-1.30); POTASSIUM 4.5 MMOL/L (3.6-5.0); TOTAL PROTEIN 8.5 GM/DL (6.4-8.2)
[2019-01-21] MEDS ORDERED: IOHEXOL 350 MG/ML 100 ML (OMNIPAQUE 350) VIAL IV ONE (18:00)
[2019-01-21] MEDS ORDERED: NS 100 ML (IVPB) BAG IV ONE (18:00)
[2019-01-21] MEDS ORDERED: HOLD METFORMIN - RECEIVED CONTRAST 20 ML VIAL IV SCH (18:00)
[2019-01-21 18:15] LABS: BILIRUBIN,URINE 1+ (NEGATIVE); CLARITY,URINE SL CLOUDY; COLOR,URINE DARK YELLOW; GLUCOSE, URINE (UA) NEGATIVE (NEGATIVE); KETONES,URINE 1+ (NEGATIVE); LEUKOCYTE ESTERASE ,URINE NEGATIVE (NEGATIVE); NITRITE,URINE NEGATIVE (NEGATIVE); PH,URINE 5.5 (5-9); PROTEIN,URINE 2+ (NEGATIVE)
[2019-01-21 18:25] LABS: AMORPHOUS SEDIMENT,UR MOD AMOR URATES /LPF; BACTERIA,URINE TRACE /HPF; GRANULAR CASTS,URINE RARE /LPF; HYALINE CASTS, URINE >50 /LPF; SQUAMOUS EPITHELIAL CELL,UR RARE /HPF; WBC,URINE 0-2 /HPF
--- NOTE | 2019-01-21 18:41 | Diagnostic Imaging Report ---
PROCEDURE: CT angiography of the chest with contrast. TECHNIQUE: Multiple contiguous axial images were obtained through the chest after uneventful bolus administration of intravenous contrast. 3D reconstructed CTA MIP acquisitions were also performed. Auto Exposure Controls were utilized during the CT exam to meet ALARA standards for radiation dose reduction. INDICATION: Dizziness and shortness of air as well as lower extremity swelling. Chest x-ray also demonstrates some hilar fullness. No prior CT studies are available for comparison. Pulmonary arterial opacification is suboptimal, limiting evaluation for pulmonary emboli. No definite filling defects are seen within central or lobar branches. There is bulky mediastinal and hilar lymphadenopathy, likely accounting for hilar fullness on recent chest x-ray. Confluent of the right paratracheal nodes measure 2.9 x 2.0 cm. There are enlarged AP window nodes. Significant subcarinal fullness is seen. There is also bilateral hilar lymphadenopathy. Left hilar lymph node measures 2.8 x 2.2 cm. No pericardial or pleural fluid is identified. Parenchymal evaluation does show an area of consolidation in the right upper lobe measuring 2.3 cm, likely pneumonia. There is also some patchy infiltrate in the right upper lobe more inferiorly at the level of the right hilum. Left lung appears to be clear. Upper abdomen is unremarkable. IMPRESSION: 1. Suboptimal evaluation for pulmonary embolism. No central pulmonary emboli are detected. 2. Bulky mediastinal and hilar lymphadenopathy. Lymphomatous process cannot be excluded. Granulomatous process such as sarcoid cannot be entirely excluded. 3. Right upper lobe pulmonary infiltrate suggestive of pneumonia. Dictated by: Dictated on workstation # [id number]
[2019-01-21] MEDS ORDERED: NS IV 1000 ML 1,000 ML IV SCH (19:00)
[2019-01-21] MEDS ORDERED: cefTRIAXone FOR IV USE 2,000 MG in WATER (STERILE) FOR INJECTION 20 ML IV ONE (19:00)
[2019-01-21] MEDS ORDERED: HYDR-3812 PO (19:03)
[2019-01-21] MEDS ORDERED: TRAM50TA2 (19:03)
[2019-01-21] MEDS ORDERED: GLIP5TAB13 PO (19:03)
[2019-01-21 20:35] VITALS: BP_SYST 125; BP_SYST 126; BP_DIAS 59
[2019-01-21] MEDS ORDERED: AZITHROMYCIN 500 MG/NS 250 ML IVPB IV SCH ×2 (21:07)
[2019-01-21] MEDS ORDERED: ONDANSETRON 4 MG/2 ML (SDV) Z0FRAN IV PRN (21:15)
[2019-01-21] MEDS ORDERED: NS (IVPB) 250 ML ONE (21:51)
[2019-01-21] MEDS ORDERED: AZITHROMYCIN 500 MG (ZITHROMAX) VIAL ONE (21:52)
[2019-01-21] MEDS: NS IV 1000 ML 1,000 ML IV SCH (22:05)
[2019-01-21 23:30] VITALS: BP 102/63
[2019-01-22] MEDS ORDERED: RT-ALBUTEROL/IPRATROPIUM 3 ML (DUONEB) VIAL INH PRN (02:00)
[2019-01-22] MEDS ORDERED: RT-ALBUTEROL/IPRATROPIUM 3 ML (DUONEB) VIAL INH SCH (02:00)
[2019-01-22 03:40] VITALS: BP 101/64
[2019-01-22 05:14] LABS: BASOPHILS % (AUTO) 0 % (0-10); EOSINOPHILS # (AUTO) 0.1 10^3/uL (0.0-0.3); EOSINOPHILS % (AUTO) 1 % (0-10); HEMATOCRIT 33 % (40-54); HEMOGLOBIN 10.8 G/DL (13.3-17.7); LYMPHOCYTES # (AUTO) 1.2 X 10^3 (1.0-4.0); LYMPHOCYTES % (AUTO) 17 % (12-44); MEAN CORPUSCULAR HEMOGLOBIN 29 PG (25-34); MEAN CORPUSCULAR HGB CONC 32 G/DL (32-36); MEAN CORPUSCULAR VOLUME 89 FL (80-99); MEAN PLATELET VOLUME 10.9 FL (7.4-10.4); MONOCYTES # (AUTO) 0.9 X 10^3 (0.0-1.0); MONOCYTES % (AUTO) 13 % (0-12); NEUTROPHILS # (AUTO) 4.8 X 10^3 (1.8-7.8); NEUTROPHILS % (AUTO) 69 % (42-75); PLATELET COUNT 348 10^3/uL (130-400); RED CELL DISTRIBUTION WIDTH 12.5 % (10.0-14.5); WHITE BLOOD COUNT 7.1 10^3/uL (4.3-11.0)
[2019-01-22 05:37] LABS: BUN/CREATININE RATIO 18; CALCIUM 9.1 MG/DL (8.5-10.1); CARBON DIOXIDE 22 MMOL/L (21-32); CHLORIDE 100 MMOL/L (98-107); CREATININE SERUM 1.01 MG/DL (0.60-1.30); GFR ESTIMATED > 60; GLUCOSE 164 MG/DL (70-105); POTASSIUM 4.3 MMOL/L (3.6-5.0); SODIUM 134 MMOL/L (135-145)
[2019-01-22] MEDS: NS IV 1000 ML 1,000 ML IV SCH ×3 (06:24→23:07)
[2019-01-22] MEDS ORDERED: MILK OF MAGNESIA 400 MG/5 ML 30 ML UDC PO PRN (07:45)
[2019-01-22] MEDS ORDERED: PATIENT MAY USE OWN MEDS, ALL PO SCH (07:45)
[2019-01-22] MEDS ORDERED: POLYETHYLENE GLYCOL 17 GM (MIRALAX) PACK PO PRN (07:45)
[2019-01-22] MEDS ORDERED: ONDANSETRON 4 MG (ZOFRAN) ORAL DISSOLVE TAB PO PRN (07:45)
[2019-01-22] MEDS ORDERED: ACETAMINOPHEN 325 MG TABLET PO PRN (07:45)
[2019-01-22] MEDS ORDERED: BISACODYL 10 MG SUPP (DULCOLAX) PR PRN (07:45)
[2019-01-22] MEDS ORDERED: ONDANSETRON 4 MG/2 ML (SDV) Z0FRAN IV PRN (07:45)
[2019-01-22] MEDS ORDERED: MELATONIN 3 MG TABLET PO PRN (07:45)
[2019-01-22 08:00] VITALS: BP 107/66
[2019-01-22] MEDS ORDERED: cefTRIAXone FOR IV USE 2,000 MG in WATER (STERILE) FOR INJECTION 20 ML IV SCH ×2 (08:00→19:00)
[2019-01-22] MEDS ORDERED: RIVA1TAB PO (08:33)
[2019-01-22] MEDS ORDERED: ACET-2650 PO (08:33)
[2019-01-22] MEDS ORDERED: MELO15TA39 PO (08:33)
--- NOTE | 2019-01-22 08:39 | NUR ---
CALLED DR. BRUNO TO MAKE HIM AWARE THAT PT HAD TRANSFUSION REACTION LAST NIGHT BEFORE I COLLECTED NEW ORDER FOR BLOOD HE PUT IN. PER REINFORCER, PT HAD REACTION DURING 2ND BAG, PM DR SAID TO HOLD THIRD BAG. DR. BRUNO TO LET ME KNOW ABOUT ORDERS.
[2019-01-22] MEDS: AZITHROMYCIN 250 MG TAB (ZITHROMAX) PO SCH (09:00)
[2019-01-22] MEDS ORDERED: RIVAROXABAN 15 MG TABLET (XARELTO) PO SCH (09:00)
[2019-01-22] MEDS ORDERED: METF-399 PO (09:43)
[2019-01-22] MEDS ORDERED: LISI-552 PO (09:43)
[2019-01-22] MEDS ORDERED: ATOR20TA49 PO (09:43)
--- NOTE | 2019-01-22 10:07 | NUR ---
SPOKE WITH THE PATIENT ABOUT HIS MEDICATIONS. HE HAD BOTTLES WITH HIM. IN ADDITION TO WHAT IS SHOWN ON THE EXT MED HX HE HAS LIPITOR 20MG #90 FILLED 01-20-[address] [facility] [employer]. HE ALSO HAS TWO BOTTLES FROM DR. [facility] [employer], THE BOTTLES HE HAS ARE FOLLOWS: 08-19-18 METFORMIN 1000MG BID #90 08-19-18 LISINOPRIL 20MG 1/2 DAILY #90 (HE HAS BEEN TAKING A WHOLE TABLET, DID NOT REALIZE HE NEEDED TO CUT THEM IN HALF) THESE ARE PAST DUE FOR REFILL BUT HE STATS HE HAS MORE LISINOPRIL AT HOME AND HIS METFORMIN BOTTLE IS FULL. HE SAYS HE DUMPED THEM TOGETHER AND MAY NOT HAVE PUT THEM IN THE NEWEST BOTTLE. I CALLED DR. HARRISON'S OFFICE AND THEY REPORT THEY ALSO DISPENSED THE METFORMIN AND LISINOPRIL ON 01-09-19. HIS XARELTO STARTER PACK WAS FILLED 01-03-19 ACCORDING TO THE EXT MED HX HOWEVER IS ONLY MISSING 20 TABLETS, THERE ARE 31 TABS LEFT IN THE STARTER PACK. HE ADMITS HE MISSES A DOSE HERE AND THERE.
[2019-01-22] MEDS: RIVAROXABAN 15 MG TABLET (XARELTO) PO SCH ×2 (10:26→20:38)
[2019-01-22] MEDS: DOCUSATE SODIUM 100 MG (COLACE) CAP PO SCH ×2 (10:31→20:38)
[2019-01-22] MEDS: inSUlin ASPART (NovoLOG) 1 UNIT/0.01 ML (CHARGE PER UNIT) SC SCH ×3 (11:00→21:42)
[2019-01-22 12:35] VITALS: BP 108/68
--- NOTE | 2019-01-22 13:00 | NUR ---
Initial visit: The pt states he feels close to God in nature, and believes that all religions have the same message. He spoke freely about his beliefs as I engaged in active listening, encouraged free expression of his thoughts and feelings, and facilitated reflection about his felt meaning and purpose. He shared felt connection with friends and family.
[2019-01-22 13:02] VITALS: BP 108/68
--- NOTE | 2019-01-22 13:30 | History & Physical-Hospitalist ---
History of Present Illness HPI/Chief Complaint Rod Martinez is a 38yoM with PMH HTN, DVT, T2DM, HLD, who presented with weakness and was admitted with pneumonia. He reports that he has been feeling weak and having joint and muscle aches. He denies shortness of breath and cough. He has been having fevers. He denies chest pain. He denies abdominal pain, nausea, vomiting, and diarrhea. He denies dysuria, frequency, and urgency. He had a DVT about a year ago and took Xarelto for a period of time. A few weeks ago, he was found to have a recurrent DVT. He was started on Xarelto again by his PCP. He was seen by Dr. Gagnon and was started on a loading dose. According to pharmacy, he has only been taking 15 mg daily instead of twice daily. He reports no history of immobility or smoking. He has a family history of blood clots in his mother and sister. Source: patient Exam Limitations: no limitations Date Seen 01/22/19 Time Seen by a Provider: 09:45 Attending Physician Nighat Bruno MD PCP No,Local Physician Referring Physician Date of Admission Jan 21, 2019 at 19:29 Home Medications & Allergies Home Medications Reviewed patient Home Medication Reconciliation performed by pharmacy medication reconciliations mechanical engineering technician and/or nursing. Patients Allergies have been reviewed. Allergies Allergies Coded Allergies Penicillins (Verified Allergy, Unknown, 05/26/16) Past Kinzaou-Crxusd-Tifhad Hx Past Med/Social Hx: Reviewed Nursing Past Med/Soc Hx Patient Social History Alcohol Use: Occasionally Uses Number of Drinks Today: AA Alcohol Beverage of Choice: Beer Recreational Drug Use: No Smoking Status: Former Smoker Type Used: Cigarettes 2nd Hand Smoke Exposure: Yes Recent Foreign Travel: No Contact w/other who traveled: No Recent Hopitalizations: No Recent Infectious Disease Expo: No Immunizations Up To Date Tetanus Booster (TDap): Less than 5yrs Seasonal Allergies Seasonal Allergies: No Past Medical History Surgeries: Tonsillectomy Cardiac: High Cholesterol, Hypertension Neurological: Neuropathy Reproductive: No (UNKNOWN) Endocrine: Diabetes, Non-Insulin dep History of Blood Disorders: No Family History Reviewed and Corrections made No Pertinent Family Hx Review of Systems Constitutional: dizziness, fever, weakness EENTM: no symptoms reported Respiratory: no symptoms reported Cardiovascular: no symptoms reported Gastrointestinal: no symptoms reported Genitourinary: no symptoms reported Musculoskeletal: joint pain, muscle pain Skin: no symptoms reported Psychiatric/Neurological: No Symptoms Reported Physical Exam Physical Exam Vital Signs Vital Signs - First Documented 01/21/19 01/21/19 01/21/19 16:51 20:10 22:06 Temp 36.4 Pulse 113 Resp 18 B/P (MAP) 133/113 (120) Pulse Ox 96 O2 Delivery Room Air FiO2 21 Capillary Refill : Less Than 3 SecondsLess Than 3 Seconds Height, Weight, BMI Height: 5'11.00" Weight: 210lbs. oz. 95.315416et; 31.03 BMI Method:Estimated General Appearance: No Apparent Distress, WD/WN HEENT: PERRL/EOMI, Moist Mucous Membranes Neck: Normal Inspection, Supple Respiratory: Lungs Clear, Normal Breath Sounds, No Respiratory Distress Cardiovascular: No Edema, No Murmur Gastrointestinal: Normal Bowel Sounds, Non Tender, Soft Extremity: No Calf Tenderness, Pedal Edema (left greater than right), Swelling Neurologic/Psychiatric: Alert, Oriented x3, No Motor/Sensory Deficits, Normal Mood/Affect Skin: Normal Color, Warm/Dry, Erythema (left brewer) Lymphatic: No Adenopathy Results Results/Procedures Labs Laboratory Tests 01/21/19 17:11 01/22/19 04:55 Patient resulted labs reviewed. Imaging: Reviewed Imaging Report Assessment/Plan Admission Diagnosis Pneumonia Admission Status: Observation Assessment and Plan Sepsis due to pneumonia -SIRS+ with fever, tachycardia, respiratory rate, and leukocytosis -Source identified as right upper lobe pneumonia on xray -Started on Rocephin and Azithromycin -MAT protocol -CT showed no pulmonary embolism, suboptimal study Recurrent DVT -Continue Xarelto -Follow up in Hematology clinic T2DM -Continue Metformin -SSI HTN -Continue Lisinopril HLD -Continue Lipitor DVT Prophylaxis: already receiving therapeutic anticoagulation Diagnosis/Problems Diagnosis/Problems (1) Sepsis due to pneumonia Status: Acute (2) Recurrent acute deep vein thrombosis (DVT) of left lower extremity Status: Acute (3) HTN (hypertension) Status: Chronic Qualifiers: Hypertension type: essential hypertension Qualified Codes: I10 - Essential (primary) hypertension (4) HLD (hyperlipidemia) Status: Chronic (5) T2DM (type 2 diabetes mellitus) Status: Chronic Qualifiers: Diabetes mellitus intermission coordinator insulin use: without detention use Diabetes mellitus complication status: without complication Qualified Codes: E11.9 - Type 2 diabetes mellitus without complications Clinical Quality Measures DVT/VTE Risk/Contraindication: Risk Factor Score Per Nursin RFS Level Per Nursing on Admit: 4+=Very High NIGHAT BRUNO MD Jan 22, 2019 13:30 POS
[2019-01-22 15:54] VITALS: BP 101/66
[2019-01-22] MEDS: metFORMIN 500 MG (GLUCOPHAGE) TAB PO SCH ×2 (17:23→21:00)
[2019-01-22] MEDS ORDERED: cefTRIAXone 1,000 MG/SWFI 10 ML IV PUSH IV SCH ×2 (19:00)
[2019-01-22 20:10] VITALS: BP 117/73
[2019-01-23 00:50] VITALS: BP 116/57
[2019-01-23 04:25] VITALS: BP 116/63
[2019-01-23 06:07] LABS: BASOPHILS % (AUTO) 0 % (0-10); EOSINOPHILS # (AUTO) 0.2 10^3/uL (0.0-0.3); EOSINOPHILS % (AUTO) 2 % (0-10); HEMATOCRIT 33 % (40-54); HEMOGLOBIN 10.6 G/DL (13.3-17.7); LYMPHOCYTES # (AUTO) 1.1 X 10^3 (1.0-4.0); LYMPHOCYTES % (AUTO) 16 % (12-44); MEAN CORPUSCULAR HEMOGLOBIN 29 PG (25-34); MEAN CORPUSCULAR HGB CONC 32 G/DL (32-36); MEAN CORPUSCULAR VOLUME 88 FL (80-99); MEAN PLATELET VOLUME 10.8 FL (7.4-10.4); MONOCYTES # (AUTO) 0.9 X 10^3 (0.0-1.0); MONOCYTES % (AUTO) 14 % (0-12); NEUTROPHILS # (AUTO) 4.5 X 10^3 (1.8-7.8); NEUTROPHILS % (AUTO) 67 % (42-75); PLATELET COUNT 360 10^3/uL (130-400); RED CELL DISTRIBUTION WIDTH 12.7 % (10.0-14.5); WHITE BLOOD COUNT 6.7 10^3/uL (4.3-11.0)
[2019-01-23 06:24] LABS: CALCIUM 8.9 MG/DL (8.5-10.1); CHLORIDE 101 MMOL/L (98-107); POTASSIUM 4.3 MMOL/L (3.6-5.0); SODIUM 135 MMOL/L (135-145)
[2019-01-23 06:45] LABS: BUN/CREATININE RATIO 14; CARBON DIOXIDE 21 MMOL/L (21-32); CREATININE SERUM 0.99 MG/DL (0.60-1.30); GFR ESTIMATED > 60; GLUCOSE 195 MG/DL (70-105)
[2019-01-23 07:35] VITALS: BP 118/62
[2019-01-23] MEDS: inSUlin ASPART (NovoLOG) 1 UNIT/0.01 ML (CHARGE PER UNIT) SC SCH (07:41)
[2019-01-23] MEDS: NS IV 1000 ML 1,000 ML IV SCH (07:56)
[2019-01-23] MEDS: RIVAROXABAN 15 MG TABLET (XARELTO) PO SCH (08:42)
[2019-01-23] MEDS: DOCUSATE SODIUM 100 MG (COLACE) CAP PO SCH (08:43)
[2019-01-23] MEDS: AZITHROMYCIN 250 MG TAB (ZITHROMAX) PO SCH (08:43)
[2019-01-23] MEDS ORDERED: lisINopril 20 MG (PRINIVIL) TABLET PO SCH (09:00)
[2019-01-23] MEDS ORDERED: CEFDINIR 300 MG (OMNICEF) CAP PO SCH (09:00)
[2019-01-23] MEDS ORDERED: CEFD300C3 PO (11:23)
[2019-01-23 11:31] VITALS: BP 111/58
--- NOTE | 2019-01-23 11:38 | Discharge Summary ---
Discharge Summary Hospital Course Problems/Dx: (1) Sepsis due to pneumonia Status: Acute (2) Recurrent acute deep vein thrombosis (DVT) of left lower extremity Status: Acute (3) HTN (hypertension) Status: Chronic Qualifiers: Qualified Codes: I10 - Essential (primary) hypertension (4) HLD (hyperlipidemia) Status: Chronic (5) T2DM (type 2 diabetes mellitus) Status: Chronic Qualifiers: Qualified Codes: E11.9 - Type 2 diabetes mellitus without complications Hospital Course Date of Admission: Jan 21, 2019 at 19:29 Admission Diagnosis : Sepsis due to pneumonia Family Physician/Provider: Neil Sandoval Physician Date of Discharge: 01/23/19 Discharge Diagnosis: Sepsis due to pneumonia Hospital Course: Rod Martinez is a 38yoM with PMH HTN, T2DM, HLD, DVT, who presented with fever and was admitted with sepsis due to pneumonia. He was started on IV antibiotics and responded well. He was transitioned to oral Omnicef on discharge. He was continued on oral Xarelto for recurrent DVT. He has an appointment scheduled for tomorrow with hematology. Labs and Pending Lab Test: Laboratory Tests 01/22/19 21:12: Glucometer 195H 01/23/19 05:34: White Blood Count 6.7, Red Blood Count 3.70L, Hemoglobin 10.6L, Hematocrit 33L, Mean Corpuscular Volume 88, Mean Corpuscular Hemoglobin 29, Mean Corpuscular Hemoglobin Concent 32, Red Cell Distribution Width 12.7, Platelet Count 360, Mean Platelet Volume 10.8H, Neutrophils (%) (Auto) 67, Lymphocytes (%) (Auto) 16 , Monocytes (%) (Auto) 14H, Eosinophils (%) (Auto) 2, Basophils (%) (Auto) 0, Neutrophils # (Auto) 4.5, Lymphocytes # (Auto) 1.1, Monocytes # (Auto) 0.9, Eosinophils # (Auto) 0.2, Basophils # (Auto) 0.0, Sodium Level 135, Potassium Level 4.3, Chloride Level 101, Carbon Dioxide Level 21, Anion Gap 13, Blood Urea Nitrogen 14, Creatinine 0.99, Estimat Glomerular Filtration Rate > 60, BUN/Creatinine Ratio 14, Glucose Level 195H, Calcium Level 8.9 Microbiology 01/22/19 Influenza Types A,B Antigen (KAT) - Final, Complete Home Meds Active Cefdinir 300 Mg Capsule 300 Mg PO BID 5 Days Reported Metformin HCl 1,000 Mg Tablet 1,000 Mg PO BID Lisinopril 20 Mg Tablet 20 Mg PO DAILY Lipitor (Atorvastatin Calcium) 20 Mg Tablet 20 Mg PO HS Xarelto Starter Pack (Rivaroxaban) 1 Each Tab.ds.pk PO UD TAKE 15MG TABLET BY MOUTH TWICE DAILY FOR 3 WEEKS THEN TAKE 20MG TABLET ONCE DAILY - FILLED 01-03-19 - ONLY 20 TABLETS GONE, 31 LEFT IN STARTER PACK. Meloxicam 15 Mg Tablet 15 Mg PO DAILY PRN Tylenol Arthritis (Acetaminophen) 650 Mg Tablet.er 1,300 Mg PO BID PRN DOES NOT TAKE IF TAKING HYDROCODONE Glipizide 5 Mg Tablet 5 Mg PO DAILY Hydrocodone-Acetamin 5-325 mg (Hydrocodone/Acetaminophen) 1 Each Tablet 1 Tab PO Q4H PRN FILLED #12 01-19-19 Assessment/Pt Instructions Take medications as directed. Follow up with your primary care physician. Keep your appointment with hematology. Discharge Planning: <30 minutes discharge planning Discharge Instructions Discharge Diet: No Restrictions Activity as Tolerated: Yes Discharge Physical Examination Vital Signs Vital Signs Date Time Temp Pulse Resp B/P (MAP) Pulse Ox O2 Delivery O2 Flow Rate FiO2 01/23/19 08:00 Room Air 01/23/19 07:35 37.7 92 18 118/62 (80) 7 01/22/19 13:02 21 General Appearance: No Apparent Distress, WD/WN HEENT: PERRL/EOMI, Pharynx Normal Respiratory: Lungs Clear, Normal Breath Sounds, No Respiratory Distress Cardiovascular: Regular Rate, Rhythm, No Edema, No Murmur Gastrointestinal: Normal Bowel Sounds, Non Tender, Soft Extremity: Normal Inspection, Non Tender, Pedal Edema Skin: Normal Color, Warm/Dry Neurologic/Psychiatric: Alert, Oriented x3, Normal Mood/Affect Allergies: Coded Allergies: Penicillins (Verified Allergy, Unknown, 05/26/16) Discharge Summary Date of Admission Jan 21, 2019 at 19:29 Date of Discharge Discharge Date: Jan 23, 2019 Discharge Time: 11:36 Admission Diagnosis Pneumonia Discharge Diagnosis Sepsis due to pneumonia (1) Sepsis due to pneumonia Status: Acute (2) Recurrent acute deep vein thrombosis (DVT) of left lower extremity Status: Acute (3) HTN (hypertension) Status: Chronic Qualifiers: Qualified Codes: I10 - Essential (primary) hypertension (4) HLD (hyperlipidemia) Status: Chronic (5) T2DM (type 2 diabetes mellitus) Status: Chronic Qualifiers: Qualified Codes: E11.9 - Type 2 diabetes mellitus without complications Clinical Quality Measures DVT/VTE Risk/Contraindication: Risk Factor Score Per Nursin RFS Level Per Nursing on Admit: 4+=Very High YUN BRUNO MD Jan 23, 2019 11:29 POS
[2019-01-24] MEDS ORDERED: metFORMIN 500 MG (GLUCOPHAGE) TAB PO SCH (07:00)
[2019-01-24] MEDS ORDERED: RIVAROXABAN 20 MG TABLET (XARELTO) PO SCH (17:00)
== END 2019-01-23 12:15 | disposition home or self-care (01) ==
LOC: EDUNIT# 16:44 → ER 16:45 → 4TH 19:29 → UNDOADMOB 19:29 → 4TH 20:20 → UNDODISOB 01-23 12:15
PROVIDERS: ADMIT Internal Medicine; ATTEND Internal Medicine
DX: A40.3 Sepsis due to Streptococcus pneumoniae (principal); I82.402 Acute embolism and thrombosis of unspecified deep veins of left lower extremity; I10 Essential (primary) hypertension; E78.5 Hyperlipidemia, unspecified; E78.00 Pure hypercholesterolemia, unspecified; E11.42 Type 2 diabetes mellitus with diabetic polyneuropathy; Z79.84 Long term (current) use of oral hypoglycemic drugs; Z79.01 Long term (current) use of anticoagulants; Z79.891 Long term (current) use of opiate analgesic; Z79.899 Other long term (current) drug therapy; Z88.0 Allergy status to penicillin; Z87.891 Personal history of nicotine dependence
CPT/HCPCS: 36415; 71045; 71275; 80048; 80053; 81000; 82962; 85025; 86141; 87804; 96361; 96374; G0378

== ENCOUNTER 2019-01-24 10:18 | Outpatient (RCR) | payer OTHER ==
[~2019-01-24 10:18] MED LIST changes: +ACET-2650 PO; +ATOR20TA49 PO; +CEFD300C3 PO; +GLIP5TAB13 PO; +HYDR-3812 PO; +LISI-552 PO; +MELO15TA39 PO; +METF-399 PO; +RIVA1TAB PO; +TRM50T
== END 2019-04-24 | disposition home or self-care (01) ==
LOC: ONC 10:18
PROVIDERS: ATTEND Internal Medicine Hematology & Oncology
DX: I82.4Y2 Acute embolism and thrombosis of unspecified deep veins of left proximal lower extremity (principal); I10 Essential (primary) hypertension; E11.9 Type 2 diabetes mellitus without complications; E78.00 Pure hypercholesterolemia, unspecified
CPT/HCPCS: 99214

== ENCOUNTER → 2019-01-28 | Outpatient (CLI) | payer OTHER ==
[~2019-01-28] MED LIST changes: +CATHETER FLUSH 10 ML SYR IV PRN; +HOLD METFORMIN - RECEIVED CONTRAST 20 ML VIAL IV SCH; +IOHEXOL 350 MG/ML 100 ML (OMNIPAQUE 350) VIAL IV ONE; +NS 100 ML (IVPB) BAG IV ONE; +TRAM50TA2; -TRM50T
--- NOTE | 2019-01-28 10:53 | Diagnostic Imaging Report ---
PROCEDURE: CT abdomen and pelvis with contrast. TECHNIQUE: Multiple contiguous axial images were obtained through the abdomen and pelvis after administration of intravenous contrast. Auto Exposure Controls were utilized during the CT exam to meet ALARA standards for radiation dose reduction. INDICATION: Suspicion for venous compression. FINDINGS: The IVC is patent. The bilateral common iliac veins patent. No extrinsic mass effect along the course. The external iliac veins and common femoral veins where visualized were patent. No venous congestion. No findings of endorgan ischemia. The arterial system throughout the abdomen and pelvis is patent and nonaneurysmal. Liver, spleen, adrenals, pancreas, kidneys all unremarkable. The spleen is negative. There is no diverticulitis or appendicitis. There is a fatty inguinal hernia on the right extending into the partially visualized upper scrotum. No herniation of viscus. The hernia orifice measures a diameter of 3.1 cm lateral to the rectus sheath and medial to the neurovascular bundle. IMPRESSION: No arterial or venous abnormality identified. Right fatty inguinal hernia extending into the partially visualized scrotum. No herniation of viscus or inflammation within the hernia sac. Dictated by: Dictated on workstation # [id number]
== END ==
LOC: RAD 09:52
PROVIDERS: ATTEND Internal Medicine Hematology & Oncology
DX: K40.90 Unilateral inguinal hernia, without obstruction or gangrene, not specified as recurrent (principal); I87.1 Compression of vein
CPT/HCPCS: 74177

== ENCOUNTER 2019-04-25 13:33 | Outpatient (RCR) | payer OTHER ==
[~2019-04-25 13:33] MED LIST changes: +ACHD5005 PO; -CATHETER FLUSH 10 ML SYR IV PRN; -HOLD METFORMIN - RECEIVED CONTRAST 20 ML VIAL IV SCH; -HYDR-3812 PO; -IOHEXOL 350 MG/ML 100 ML (OMNIPAQUE 350) VIAL IV ONE; -NS 100 ML (IVPB) BAG IV ONE; -TRAM50TA2; +TRM50T
[2019-04-25 13:43] LABS: BASOPHILS # (AUTO) 0.1 10^3/uL (0.0-0.1); BASOPHILS % (AUTO) 1 % (0-10); EOSINOPHILS # (AUTO) 0.4 10^3/uL (0.0-0.3); EOSINOPHILS % (AUTO) 9 % (0-10); HEMATOCRIT 39 % (40-54); HEMOGLOBIN 13.1 G/DL (13.3-17.7); LYMPHOCYTES % (AUTO) 24 % (12-44); MEAN CORPUSCULAR HEMOGLOBIN 28 PG (25-34); MEAN CORPUSCULAR HGB CONC 34 G/DL (32-36); MEAN CORPUSCULAR VOLUME 84 FL (80-99); MEAN PLATELET VOLUME 11.4 FL (7.4-10.4); MONOCYTES # (AUTO) 0.6 X 10^3 (0.0-1.0); MONOCYTES % (AUTO) 13 % (0-12); NEUTROPHILS # (AUTO) 2.3 X 10^3 (1.8-7.8); NEUTROPHILS % (AUTO) 53 % (42-75); PLATELET COUNT 277 10^3/uL (130-400); RED CELL DISTRIBUTION WIDTH 13.6 % (10.0-14.5); WHITE BLOOD COUNT 4.3 10^3/uL (4.3-11.0)
== END 2019-07-24 | disposition home or self-care (01) ==
LOC: ONC 13:33
PROVIDERS: ATTEND Internal Medicine Hematology & Oncology
DX: I82.4Y2 Acute embolism and thrombosis of unspecified deep veins of left proximal lower extremity (principal); I10 Essential (primary) hypertension; E11.9 Type 2 diabetes mellitus without complications; E78.00 Pure hypercholesterolemia, unspecified
CPT/HCPCS: 85025; 99213